=== PATIENT | female | born 1960 | race African-American/Black ===

== ENCOUNTER → 2016-06-20 | Outpatient (CLI) | payer OTHER | LOC: CIMAGING 14:17 | DX: Z12.31 Encounter for screening mammogram for malignant neoplasm of breast (principal) | CPT/HCPCS: G0202 ==

== ENCOUNTER → 2016-11-09 | Outpatient (CLI) | payer OTHER | LOC: BMCIMAGING 15:45 | PROVIDERS: ATTEND Orthopaedic Surgery | DX: M25.561 Pain in right knee (principal); M17.11 Unilateral primary osteoarthritis, right knee ==

== ENCOUNTER → 2017-06-22 | Outpatient (CLI) | payer OTHER | LOC: CIMAGING 07:52 | PROVIDERS: ATTEND Internal Medicine | DX: Z12.31 Encounter for screening mammogram for malignant neoplasm of breast (principal) ==